=== PATIENT | female | born 1950 | race Caucasian/White ===

== ENCOUNTER → 2022-06-27 11:29 | Outpatient (CLI) | payer MEDICARE, OTHER, SELFPAY ==
--- NOTE | 2022-06-27 | DI.US.S_ITS ---
PROCEDURE: US THYROID INDICATIONS: HYPERPARATHYROIDISM TECHNIQUE: Real-time scanning was performed of the thyroid gland, with image documentation. COMPARISON: [place], [place], [place] PARATHYROID, 06/27/2022, 12:26. FINDINGS: Right: Thyroid lobe measures 5.5 x 2.0 x 1.5 cm, and is homogeneous in echotexture. Left: Thyroid lobe measures 4.8 x 1.9 x 1.2 cm, and is homogenous in echotexture. Isthmus: 3 mm thick. Nodule number: 1 Location: Right lobe superior Size: 0.6 x 0.7 x 0.3 cm. Composition: Cystic and solid Echogenicity: Hypoechoic Shape: wider than tall. Margins: Smooth Echogenic foci: Punctate Total points: 6 ACR TI-RADS category: 4 Nodule number: 2 Location: Right lobe mid Size: 0.7 x 0.5 x 0.3 cm. Composition: Predominantly solid Echogenicity: Hypoechoic Shape: wider than tall. Margins: Smooth Echogenic foci: None Total points: 4 ACR TI-RADS category: 4 Nodule number: 3 Location: Right lobe inferior Size: 0.5 x 0.3 x 0.3 cm. Composition: Predominantly solid Echogenicity: Hypoechoic Shape: wider than tall. Margins: Smooth Echogenic foci: Punctate Total points: 7 ACR TI-RADS category: 5 Nodule number: 4 Location: Left lobe mid Size: 0.9 x 0.7 x 0.4 cm. Composition: Predominantly solid Echogenicity: Hypoechoic Shape: wider than tall. Margins: Smooth Echogenic foci: Punctate Total points: 7 ACR TI-RADS category: 5 Nodule number: 5 Location: Left lobe inferior Size: 0.7 x 0.4 x 0.4 cm. Composition: Solid Echogenicity: Hypoechoic Shape: wider than tall. Margins: Smooth Echogenic foci: Punctate Total points: 7 ACR TI-RADS category: 5 IMPRESSION: 1. No parathyroid adenoma identified sonographically. 2. Multiple subcentimeter thyroid nodules present as above, follow-up recommendations as below. None meet TI-RADS criteria for FNA recommendation. ACR TI-RADS definitions and recommendations: TI-RADS 1 (benign): 0 points. FNA not needed. TI-RADS 2 (not suspicious): 2 points. FNA not needed. TI-RADS 3 (mildly suspicious): 3 points. * FNA if 2.5 cm or larger, follow up if 1.5 cm or larger (at 1, 3, and 5 years). TI-RADS 4 (moderately suspicious): 4-6 points. * FNA if 1.5 cm or larger, follow up if 1 cm or larger (at 1, 2, 3, and 5 years). TI-RADS 5 (highly suspicious): 7 points or more. * FNA if 1 cm or larger, follow up if 0.5 cm or larger (every year for 5 years). Dictated by: Surya Montano M.D. on 06/27/2022 at 17:24 Approved by: Surya Montano M.D. on 06/27/2022 at 17:31
--- NOTE | 2022-06-27 | DI.NM.S_ITS ---
PROCEDURE: [place] PARATHYROID RADIOPHARMACEUTICAL: 25.1 mCi Tc-99m sestamibi IV. INDICATIONS: Hyperparathyroidism TECHNIQUE: After intravenous administration of Tc-99m sestamibi, anterior planar images of the neck and mediastinum were obtained at approximately 10 minutes and 2-3 hours. SPECT images were acquired after the 10 minute planar images. COMPARISON: [facility], , [place] THYROID, 06/27/2022, 13:57. FINDINGS: On the early images, the thyroid gland is bilobed and has normal size and morphology. There is mild focal increased activity in the thyroid bed. The delayed images show possible preferential tracer retention in the thyroid bed inferior pole of the right thyroid bed, suspicious for parathyroid adenoma. The SPECT images demonstrate it could focal increased activity in the inferior pole of the right thyroid bed. IMPRESSION: 1. Possible parathyroid adenoma in the inferior right thyroid bed. Recommend correlation with serum parathyroid hormone levels. If clinically indicated, CT with and without contrast using parathyroid protocol would be helpful. Dictated by: Parisa Gao M.D. on 06/27/2022 at 16:05 Approved by: Parisa Gao M.D. on 06/27/2022 at 16:10
== END ==
PROVIDERS: PCP Internal Medicine; Referring Provider Surgery; Visit Provider Surgery
DX: E21.3 Hyperparathyroidism, unspecified (principal); E04.2 Nontoxic multinodular goiter
CPT/HCPCS: 76536; 78070; A9500